=== PATIENT | male | born 1985 | race Caucasian/White ===

== ENCOUNTER 2017-03-10 16:09 | Emergency (ER) | payer SELFPAY ==
[2017-03-10 16:20] VITALS: BP 152/89
[2017-03-10] MEDS ORDERED: Ibuprofen TAB* 600 MG PO ONE (16:23)
--- NOTE | 2017-03-10 16:46 | UC ---
Throat Pain/Nasal Mike HPI - HPI Summary HPI Summary: 31 yo male with sore throat x 1 day f/c hugo myalgias no n/v/d - History of Current Complaint Chief Complaint: UCRespiratory Stated Complaint: FEVER CHILLS HEADACHE Time Seen by Provider: 03/10/17 16:21 Hx Obtained From: Patient Onset/Duration: Gradual Onset, Lasting Hours Severity: Moderate Pain Intensity: 7 Pain Scale Used: 0-10 Numeric Associated Signs & Symptoms: Positive: Fever - Epiglottits Risk Factors Epiglottis Risk Factors: Negative - Allergies/Home Medications Allergies/Adverse Reactions: Allergies Allergy/AdvReac Type Severity Reaction Status Date / Time No Known Allergies Allergy Verified 03/10/17 16:19 Home Medications: Home Medications Acetaminophen [Eql Acetaminophen] 650 mg PO 03/10/17 [History] [id number] [Nyquil Severe Cold/Flu 5-6.25-10-325 mg/15Ml] 1 liq PO 03/10/17 [History] PMH/Surg Hx/FS Hx/Imm Hx Previously Healthy: Yes - Surgical History Surgical History: None - Family History Known Family History: Negative: Cardiac Disease, Diabetes - Social History Alcohol Use: None Substance Use Type: None Smoking Status (MU): Never Smoked Tobacco Review of Systems Constitutional: Fever, Chills Skin: Negative Eyes: Negative ENT: Sore Throat Respiratory: Negative Cardiovascular: Negative Gastrointestinal: Negative Genitourinary: Negative Motor: Negative Neurovascular: Negative Musculoskeletal: Negative Neurological: Headache Psychological: Negative All Other Systems Reviewed And Are Negative: Yes Physical Exam Triage Information Reviewed: Yes Appearance: Well-Appearing, No Pain Distress, Well-Nourished Vital Signs: Initial Vital Signs Temp 105.4 F 03/10/17 16:15 Pulse 118 03/10/17 16:15 Resp 20 03/10/17 16:15 BP 152/89 03/10/17 16:15 Pulse Ox 97 03/10/17 16:15 Vital Signs Reviewed: Yes Eyes: Positive: Conjunctiva Clear ENT: Positive: Pharyngeal erythema, Tonsillar swelling, Tonsillar exudate, Other : - uvula midline. Negative: Nasal congestion, Nasal drainage, Trismus, Muffled /hoarse voice Dental Exam: Normal Neck: Positive: Supple, Nontender, Enlarged Nodes @ - ant cervical Respiratory: Positive: Lungs clear, Normal breath sounds, No respiratory distress Cardiovascular: Positive: RRR, No Murmur, Tachycardia Musculoskeletal: Positive: Strength Intact, ROM Intact Neurological: Positive: Alert Psychological Exam: Normal Skin Exam: Normal Throat Pain/Nasal Course/Dx - Course Course Of Treatment: RS (+). RF(-) - Differential Dx/Diagnosis Provider Diagnoses: strep throat Discharge - Discharge Plan Condition: Stable Disposition: HOME Prescriptions: Penicillin VK TAB 500 MG(NF) [Penicillin VK 500 mg Tab(NF)] 1,000 mg PO BID #40 tab Patient Education Materials: Strep Throat (ED) Print Language: HAITIAN Forms: *Work Release Referrals: No Primary Care Phys,NOPCP [Primary Care Provider] - Additional Instructions: recheck in 3-4 days if not better
== END 2017-03-10 17:00 | disposition home or self-care (01) ==
LOC: UCEAST 16:09
DX: J02.0 Streptococcal pharyngitis (principal)
CPT/HCPCS: 87502; 87651; 99202; A9270-GY; G0463